=== PATIENT | female | born 1930 | race Caucasian/White ===

== ENCOUNTER 2016-08-23 09:52 | Day surgery (SDC) | payer MEDICARE ==
[~2016-08-23] VITALS: Ht 152.4 cm; Wt 56.0 kg
[~2016-08-23 09:52] MED LIST: ACET-2321 PO; ALEN70TA2 PO; AMLO10TA4 PO; ATOR20TA PO; CALC-139 PO; DOCU-168 PO; LIDOCAINE 1% (10mg/ml) 2ml SDV INJ ONE; LISI2.5T2 PO; LR 1,000 ML IV SCH; METO25TA3 PO; MULT-21 PO; OMEP20CA4 PO; PROPOFOL 500mg 50 ML IV ONE
--- OUTSIDE RECORDS SUMMARY | 2016-08-23 09:56 | XMS REPORT | Continuity of Care Document ---
Author Author [facility] Organization [facility] Address Unknown Phone Unavailable Allergies Medications Problems Procedures Results Encounters ACCT No. Visit Date/Time Discharge Status Pt. Type Provider Facility Loc./Unit Complaint [id number] 06/24/2013 10:03:00 06/24/2013 23 :59:59 CLS Outpatient [id number] 05/25/2013 13:50:00 05/25/2013 23 :59:59 CLS Outpatient
--- OUTSIDE RECORDS SUMMARY | 2016-08-23 09:57 | XMS REPORT | Referral Summary ---
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 Phone Ervin Smith Primary Care Physician [phone] Encounter VC Date(s): 06/11/16 - 06/11/16 [facility], [address] [place] [id number] Discharge Diagnosis: Benign essential hypertension Discharge Diagnosis: Lightheadedness Discharge Diagnosis: Anemia Discharge Disposition: 01-Home or Self Care Attending Physician: Forrest Smith MD Admitting Physician: Forrest Smith MD Vital Signs Most recent to 1 oldest [Reference Range]: Temperature Oral 36.8 degC [35.8-37.3 degC] (06/11/16 1:32 PM) Peripheral Pulse 66 bpm Rate [60-100 bpm] (06/11/16 1:32 PM) Respiratory Rate 18 br/min [14-20 br/min] (06/11/16 1:32 PM) Blood Pressure 112/68 mmHg [90-140/60-90 mmHg] (06/11/16 1:32 PM) Problem List Condition Effective Dates Status Health Status Informant Anxiety state Active (finding)(Confirmed) Arthritis(Confirmed) Resolved Benign essential Active hypertension (disorder)(Confirmed ) Breast Resolved cancer(Confirmed) Cardiac Resolved murmur(Confirmed) Closed fracture of Active lumbar vertebra without spinal cord injury (disorder)(Confirmed ) Fracture of L2 2013 Active vertebra - "burst"(Confirmed) Gastroesophageal Active reflux disease (disorder)(Confirmed ) MYASTHENIA Active GRAVIS(Confirmed) Hypertension(Confirm Resolved ed) Myasthenia Resolved gravis(Confirmed)1 Osteopenia(Confirmed Resolved ) Osteoporosis Active (disorder)(Confirmed ) Rheumatoid arthritis Active (disorder)(Confirmed ) Sepsis due to 1997 Resolved Staphylococcus(Confi rmed)2 Vertebral fracture, Resolved L2(Confirmed)3 1Dr. Ohlmstead 2Hospitalized 3"Burst" Allergies, Adverse Reactions, Alerts Substance Reaction Severity Status Betadine1 Active cephalexin allergy Active codeine allergy Active morphine allergy Active traMADol lightheaded and dizzy Mild Active 1Hives to topical Betadine Medications acetaminophen 1,000 mg, Oral, q6hr, as needed for pain, 0 Refill(s) Start Date: 08/25/15 Status: Ordered alendronate 70 mg oral tablet See Instructions, TAKE 1 TABLET BY MOUTH ONCE A WEEK, DIRECTED, # 12 tabs, 2 Refill(s), eRx: [employer] [id number], TAKE 1 TABLET BY MOUTH ONCE A WEEK, DIRECTED Start Date: 07/25/15 Status: Ordered amLODIPine 10 mg oral tablet See Instructions, TAKE 1 TABLET BY MOUTH EVERY DAY, # 30 tabs, 2 Refill(s), eRx : [employer] [id number], TAKE 1 TABLET BY MOUTH EVERY DAY Start Date: 05/22/16 Status: Ordered atorvastatin 20 mg oral tablet See Instructions, TAKE 1 TABLET BY MOUTH EVERY DAY AT BEDTIME, # 90 tabs, eRx: [employer] [id number] Start Date: 06/01/16 Status: Ordered calcium gluconate 500 mg oral tablet 500 mg 1 tabs, Oral, BID, 0 Refill(s) Start Date: 09/28/13 Status: Ordered Dulcolax Stool Softener 100 mg, Oral, Daily, 0 Refill(s) Start Date: 05/15/16 Status: Ordered lisinopril 2.5 mg oral tablet See Instructions, TAKE 1 TABLET BY MOUTH DAILY, # 90 tabs, 2 Refill(s), eRx: [employer] [id number] Start Date: 05/28/16 Status: Ordered Metoprolol Succinate ER 25 mg oral tablet, extended release See Instructions, TAKE 1 TABLET BY MOUTH DAILY, # 90 tabs, eRx: [employer] [id number] Start Date: 06/01/16 Status: Ordered MiraLax oral powder for reconstitution 17 g, Oral, Daily, dissolve in water before taking, # 255 g, 0 Refill(s) Start Date: 05/15/16 Status: Ordered multivitamin Daily, 0 Refill(s) Start Date: 09/28/13 Status: Ordered PriLOSEC OTC mg, Oral, Daily, 0 Refill(s) Start Date: 09/28/13 Status: Ordered Results Hematology Most recent to 1 oldest [Reference Range]: WBC [4.8-10.8 4.9 10*3/uL 10*3/uL] (06/11/16 2:25 PM) RBC [4.00-5.20] 3.30 *LOW* (06/11/16 2:25 PM) Hgb [12.0-16.0 7.9 gm/dL gm/dL] *LOW* (06/11/16 2:25 PM) Hct [37.0-47.0 %] 26.1 % *LOW* (06/11/16 2:25 PM) MCV [82.0-99.0 fL] 79.1 fL *LOW* (06/11/16 2:25 PM) MCH [27.0-32.0 pg] 23.9 pg *LOW* (06/11/16 2:25 PM) MCHC [32.0-36.0 30.3 gm/dL gm/dL] *LOW* (06/11/16 2:25 PM) RDW [11.5-14.5 %] 16.5 % *HI* (06/11/16 2:25 PM) Platelet [150-400 207 10*3/uL 10*3/uL] (06/11/16 2:25 PM) MPV [8.8-14.8 fL] 9.9 fL (06/11/16 2:25 PM) Immature 0.4 % Granulocytes (06/11/16 2:25 PM) [0.0-1.0 %] Neutrophils [51-75 74 % %] (06/11/16 2:25 PM) Lymphocytes [20-46 12 % %] *LOW* (06/11/16 2:25 PM) Monocytes [4-11 %] 13 % *HI* (06/11/16 2:25 PM) Eosinophils [0-4 %] 1 % (06/11/16 2:25 PM) Basophils [0-2 %] 0 % (06/11/16 2:25 PM) Neutro Absolute 3.59 [1.90-7.00] (06/11/16 2:25 PM) Lymph Absolute 0.57 [0.80-3.30] *LOW* (06/11/16 2:25 PM) Terry Absolute 0.64 [0.30-1.00] (06/11/16 2:25 PM) Eos Absolute 0.03 [0.00-0.50] (06/11/16 2:25 PM) Baso Absolute 0.01 [0.00-0.20] (06/11/16 2:25 PM) Reticulocyte 1.5 % [0.6-2.5 %] (06/11/16 2:25 PM) Chemistry Most recent to 1 oldest [Reference Range]: Ferritin Lvl [5-204 15 ng/mL ng/mL] (06/11/16 2:25 PM) Vitamin B12 Lvl 1709 pg/mL [213-816 pg/mL] *HI* (06/11/16 2:25 PM) Folate Lvl [7.0-31.4 >20.0 ng/mL ng/mL] (06/11/16 2:25 PM) Immunizations Given and Recorded Vaccine Date Status Refusal Reason tetanus/diphth/pertuss (Tdap) adult/adol 10/05/14 Given influenza virus vaccine, inactivated 01/14/15 Recorded pneumococcal 13-valent conjugate vaccine 10/05/14 Given pneumococcal 23-polyvalent vaccine 04/15/06 Recorded tetanus-diphth toxoids (Td) adult/adol 12/20/98 Recorded zoster vaccine live 10/13/09 Recorded Procedures Procedure Date Related Diagnosis Body Site Total hip replacement1 09/27/15 S/P colonoscopy 10/11/11 Cataract extraction, right 08/2008 Cataract extraction, left 07/2008 Colonoscopy 2002 Reconstruction 1988 Biopsy of breast, right 1986 Thymectomy 1961 1Right total hip arthroplasty Social History Social History Type Response Smoking Status Never smoker Assessment and Plan Extracted from: Title: 2 Week HTN Follow Up Author: Forrest Smith MD Date: 06/11/16 Impression and Plan Diagnosis Anemia (DXE71-UB D64.9, Discharge, Medical). Benign essential hypertension ([id number] I10, Discharge, Medical). Lightheadedness (LRU26-QP R42, Discharge, Medical). Orders Orders (Selected) Outpatient Orders Future (On Hold) CBC w/ Differential: Ferritin: Occult Blood X 3, Stool: Reticulocyte Count: Vitamin B12 and Folate: .
--- OUTSIDE RECORDS SUMMARY | 2016-08-23 09:57 | XMS REPORT | Referral Summary ---
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 Role Phone Ervin Smith Primary Care Physician [phone] Encounter VC Date(s): 05/15/16 - 05/15/16 [facility] [address] [place] [id number] Discharge Diagnosis: Benign essential hypertension Discharge Diagnosis: Right trigger finger Discharge Diagnosis: Irregular heart beat Discharge Diagnosis: Undiagnosed cardiac murmurs Discharge Diagnosis: Noncompliance with medication regimen Discharge Diagnosis: Frequent PVCs Discharge Disposition: 01-Home or Self Care Attending Physician: Forrest Smith MD Admitting Physician: Forrest Smith MD Vital Signs Most recent to 1 oldest [Reference Range]: Peripheral Pulse 82 bpm Rate [60-100 bpm] (05/15/16 10:15 AM) Blood Pressure 130/56 mmHg [90-140/60-90 mmHg] (05/15/16 10:15 AM) Problem List Condition Effective Dates Status Health [...] arthritis Active (disorder)(Confirmed ) Sepsis due to 1998 Resolved Staphylococcus(Confi rmed)2 Vertebral fracture, Resolved L2(Confirmed)3 [...] DIRECTED, # 12 tabs, 2 Refill(s), eRx: [employer] [id number], TAKE 1 TABLET BY MOUTH ONCE A WEEK, DIRECTED Start Date: 07/25/15 Status: Ordered amLODIPine 10 mg oral tablet 10 mg 1 tabs, Oral, Daily, 0 Refill(s) Start Date: 08/25/15 Status: Ordered atorvastatin 20 mg oral tablet See Instructions, TAKE 1 TABLET BY MOUTH EVERY DAY AT BEDTIME, # 90 tabs, 1 Refill(s), eRx: [employer] [id number], TAKE 1 TABLET BY MOUTH EVERY DAY AT BEDTIME Start Date: 02/06/16 Status: Ordered calcium gluconate 500 mg oral tablet 500 mg 1 tabs, Oral, BID, 0 Refill(s) Start Date: 09/28/13 Status: Ordered Dulcolax Stool Softener 100 mg, Oral, Daily, 0 Refill(s) Start Date: 05/15/16 Status: Ordered lisinopril 2.5 mg oral tablet See Instructions, TAKE 1 TABLET BY MOUTH DAILY, # 90 tabs, eRx: [employer] [id number], TAKE 1 TABLET BY MOUTH DAILY Start Date: 02/27/16 Status: Ordered Metoprolol Succinate ER 25 mg oral tablet, extended release See Instructions, TAKE 1 TABLET BY MOUTH DAILY, # 90 tabs, 1 Refill(s), eRx: [employer] [id number], TAKE 1 TABLET BY MOUTH DAILY Start Date: 02/17/16 Status: Ordered MiraLax oral powder for reconstitution 17 g, Oral, Daily, dissolve in water before taking, # 255 g, 0 Refill(s) Start Date: 05/15/16 Status: Ordered multivitamin Daily, 0 Refill(s) Start Date: 09/28/13 Status: Ordered PriLOSEC OTC mg, Oral, Daily, 0 Refill(s) Start Date: 09/28/13 Status: Ordered Results No data available for this section Immunizations Given and Recorded Vaccine Date Status [...] right 08/2008 Cataract extraction, left 07/2008 Colonoscopy 2001 Reconstruction 1988 Biopsy of breast, right 1986 Thymectomy 1961 1Right total hip arthroplasty Social History Social History Type Response Smoking Status Never smoker Assessment and Plan Extracted from: Title: OV Author: Forrest Smith MD Date: 05/15/16 Impression and Plan Diagnosis Benign essential hypertension ([id number]-IG I10, Discharge, Medical). Right trigger finger (BOU97-VQ M65.30, Discharge, Medical). Irregular heart beat (ZJN51-FT I49.9, Discharge, Medical). Undiagnosed cardiac murmurs (ZZV92-SU R01.1, Discharge, Medical). Noncompliance with medication regimen (PDR94-TN Z91.14, Discharge, Medical). 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 Orders Orders (Selected) Outpatient Orders Ordered Request for Cardiovascular Echo: .
[2016-08-23 10:05] VITALS: Ht 152.4 cm; Wt 56.0 kg
[2016-08-23 10:06] VITALS: BP 157/68; PULSE 63; RESP 15; TEMP 97.5; O2SAT 99
--- NOTE | 2016-08-23 10:23 | ANESPREOP ---
Anesthesia Record Date and Time DATE: 08/23/16 TIME: 10:21 Pre-Op Diagnosis Anemia, positive Hemoccult Proposed Surgical Procedure 0945 NPO since: Midnight Allergies: Coded Allergies: meperidine HCl (Verified Allergy, Intermediate, HIVES, 08/23/16) HIVES cephalexin (Verified Allergy, Unknown, 08/23/16) codeine (Verified Allergy, Unknown, HIVES, 08/23/16) iodine (Verified Allergy, Unknown, HIVES, 08/23/16) morphine (Verified Allergy, Unknown, HIVES, 08/23/16) hydroxychloroquine sulfate (Verified Adverse Reaction, Intermediate, CONTRAINDICATED WITH MYASTHENIA GRAVIS, 08/23/16) tramadol (Verified Adverse Reaction, Unknown, LIGHTHEADED, DIZZY, 08/23/16) Uncoded Allergies: MYCINS (Allergy, Intermediate, 10/11/11) MUSCLE RELAXERS (Allergy, Unknown, CONTRAINDICATED WITH MYASTHENIA GRAVIS, 08/11/15) Ht/Wt/BMI Height: 5 ' 0.00 " Weight: 56.000 kg BMI: 24.1 kg/m2 Vital Signs Date Time Temp Pulse Resp B/P Pulse Ox O2 Delivery O2 Flow Rate FiO2 08/23/16 10:06 97.5 63 15 157/68 99 Room Air Medications Inpatient Medications Current Medications Medications (Trade) Dose Ordered Sig/Madeline Start Time Stop Time Status Last Admin Dose Admin Lactated Ringer's (Lactated Ringers) 1,000 ml @ 30 mls/hr Q24H 08/23/16 07:00 Acetaminophen (Tylenol) 325 Mg Tablet, 1-2 TAB PO QID PRN for PAIN Last Taken: on Unknown Date & Time Alendronate Sodium (Fosamax) 70 Mg Tablet, 70 MG PO Fr@0600 Last Taken: on 08/12/16 0700 Amlodipine Besylate (Norvasc) 10 Mg Tablet, 10 MG PO DAILY Last Taken: on 08/22/16 2230 Atorvastatin Calcium (Lipitor) 20 Mg Tablet, 20 MG PO HS Last Taken: on Unknown Date & Time Calcium Carbonate/Vitamin D3 (Calcium 500 + Vit D 200 Tablet) 1 Tab Tablet, 1 TAB PO BID Last Taken: on 08/22/16 0700 Docusate Sodium (Colace) 100 Mg Capsule, 1 CAP PO DAILY, (Reported) Last Taken: on 08/21/16 0700 Lisinopril (Lisinopril) 2.5 Mg Tablet, 2.5 MG PO DAILY Last Taken: on 08/22/162229 Metoprolol Succinate (Toprol Xl) 25 Mg Tablet, 25 MG PO DAILY Last Taken: on 08/22/162229 Multivitamins,Therapeutic (Thera) 1 Tab Tablet , 1 TAB PO DAILY Last Taken: on 08/22/16 07 Omeprazole (Prilosec) 20 Mg Capsule, 20 MG PO HS Last Taken: on Unknown Date & Time Currently on Beta Camryn: Yes Beta Camryn Last Taken: 08/23/16 Medical/Surgical History Anesthesia PMH: Reports: *Hypertension (PER H&P), Anesthesia Reactions (due to myasthenia gravis pt has a list of meds to avoid ), Arthritis (RA PER H&P), Cancer (R.BREAST PER HP), Hyperlipidemia, Other (Myasthenia Gravis), Reflux, Denies: *Angina, *Diabetes, *Dyspnea, *UT, Asthma, Blood Transfusion Reac, CHF, COPD, CVA/Stroke/TIA, Clotting Problems, Deep Vein Thrombosis, Glaucoma, Headaches, Hepatitis, Hiatal Hernia, Malignant Hyperthermia, Pneumonia, Renal Disease, Rheumatic Fever, Seizures, Sleep Apnea, Thyroid Disease, Tuberculosis Smoking Status: Never smoker Has pt. smoked today?: No Use Chewing Tobacco?: No Second Hand Exposure: No Substance Use Type: does not use Alcohol Intake: none Past Surgical History Orthopedic Surgeries: Yes - THR PER H&P Abdominal Surgeries: No Genitourinary Surgeries: No Cardiac Surgeries: Yes - TOOK A GLAND OFF THE HEART TO CHECK FOR CANCER Endocrine Surgeries: Yes - THYMECTOMY PER H&P Reproductive Surgeries: Yes - BREAST BIOPSY, RIGHT MASTECTOMY & RECONSTRUCTION Neurological Surgeries: No Ear Surgeries: No Nose Surgeries: No Throat Surgeries: No Other Surgeries: Yes - COLONSOCOPY, CAT Anesthesia Adverse Reactions: FOUND none Pertinent Findings EKG Rhythm: Sinus Rhythm Physical Exam Respiratory: Lungs clear Cardiovascular: FOUND Regular rate, rhythm Airway Assessment Mallampati Score: II TMD: 3 Fingerbreadths Neck Extension: Fair Overall Assessment: No Airway Concerns ASA: 3 Plan Anesthesia Plan: TIVA Discussion Discussed risks/options/alternatives of anesthesia and questions answered. Patient consents. Nursing pain assessment noted. Present: Children Attestation Statement Prior to the delivery of any anesthetic medication, I examined the patient, developed the plan, obtained the patient's consent and discussed the risk and benefits of the procedure with the patient/guardian. MIGUEL ANGEL AGUILAR TESTING AND REGULATING CHIEF August 23, 2016 10:23
[2016-08-23] MEDS ORDERED: LIDOCAINE VISCOUS 2% Oral Soln 15ml UD ONE (12:38)
[2016-08-23 13:07] VITALS: BP 84/45; PULSE 47; RESP 16; TEMP 97.2; O2SAT 96
[2016-08-23 13:15] VITALS: BP 100/55; PULSE 48; RESP 14; O2SAT 96
[2016-08-23 13:30] VITALS: BP 128/60; PULSE 56; RESP 16; O2SAT 98
[2016-08-23 13:45] VITALS: BP 122/60; PULSE 53; RESP 16; O2SAT 97
--- NOTE | 2016-08-23 16:23 | OPNOTEF ---
DATE OF SERVICE 08/23/2016 SURGEON Iván Johnston MD PREOPERATIVE DIAGNOSIS Personal history for progressive anemia, Hemoccult positive stools. POSTOPERATIVE DIAGNOSIS Personal history for progressive anemia, Hemoccult positive stools, distal esophagitis, paraesophageal hernia, pandiverticulosis. PROCEDURE Esophagogastroduodenoscopy with biopsies from distal esophagus via cold biopsy technique, colonoscopy. ANESTHESIA TIVA BRIEF HISTORY/INDICATIONS Mrs. Tim is an 85-year-old female who has developed progressive iron deficiency anemia and was found to have a Hemoccult positive stool. As a result of the above indications it was recommended to the patient she undergo bidirectional endoscopy. FINDINGS Upon upper endoscopy the patient was found to have endoscopic evidence for a paraesophageal hernia. There was a component of distal esophagitis. Biopsies were obtained from the distal esophagus. Upon colonoscopy there was no evidence for angiodysplastic lesions, polyps or rimma malignancies. The patient was found to have a fair amount of diverticula scattered throughout the entire colon with the majority of the diverticular disease being present within the sigmoid colon region. DESCRIPTION OF PROCEDURE After informed consent was obtained, the patient was brought to the endoscopy suite and placed on the table in left lateral decubitus position. The patient subsequently underwent total intravenous anesthesia by the nurse respiratory technician per my request. A formal time-out was then completed. Next, an Olympus gastroscope was inserted into the oral hypopharynx. Vocal cords were visualized and found to be symmetric. Gastroscope was then subsequently advanced directly into the esophagus and subsequently into the stomach. The antrum and pylorus were not in the typical location and a J-maneuver was then performed. One could then see that the antral portion of the stomach was actually within the mediastinum and that the patient had a paraesophageal hernia. Gastroscope was then able to be advanced up into the antral portion of the stomach within the mediastinum. Scope was then advanced up to and just beyond the pylorus. Scope was unable to be advanced further into the duodenum as a result of the abnormal anatomy/paraesophageal hernia. The duodenal bulb was without noted abnormalities. The scope was then withdrawn back to the prepyloric region and antrum. Again, no marked abnormalities were noted. Scope was then withdrawn back into the corpus of the stomach. Photos were obtained upon J-maneuver to document the paraesophageal hernia. One could see the stomach to the right of the right crura up into the mediastinum as discussed above. The scope was allowed to straighten and slowly withdrawn. The remaining corpus of the stomach was visualized and again without noted abnormalities. Scope was withdrawn back to the level of the squamocolumnar junction which was about 3-4 cm above the level of the diaphragm. Squamocolumnar junction was somewhat erythematous in nature as well as containing a small ulceration. The mucosa just beneath the GE junction was also somewhat more "cobblestoned" than one typically sees . This did not appear worrisome however in nature. Several biopsies were obtained from the distal esophagus via cold biopsy technique. Scope was then slowly withdrawn and the remaining esophageal mucosa was inspected and found to be without noted abnormalities. Next, attention was directed towards performing the colonoscopy. First digital examination was performed. Normal sphincter tone. No rectal masses were appreciated. An Olympus colonoscope was inserted in the anus and advanced through the lumen of the colon under direct visualization at all times until the cecum was ascertained. Triangulation of the teniae coli and ileocecal valve were identified. The scope was then slowly withdrawn. As stated above, the patient was found to have diverticula scattered throughout the entire colon. There was however no evidence for angiodysplastic lesions, polyps or rimma malignancies. Once the colonoscope was withdrawn back into the rectal vault, a J-maneuver was performed. No worrisome perianal pathology was noted. Scope was allowed to straighten and withdrawn through the anal verge. The patient tolerated the procedure without difficulty and was sent back to the preop area in stable condition. Given the patient's advanced age and the fact that she seems to be asymptomatic in nature in regards her paraesophageal hernia, I would not recommend elective repair. If the patient would become symptomatic in nature, then at that time may address proceeding with repair of her paraesophageal hernia. I do feel that this paraesophageal hernia is contributing to her iron deficiency anemia. We will await her pathologic results from her biopsy of the distal esophagus and proceed accordingly with further recommendations thereafter. ALLYSSA
--- NOTE | 2016-08-23 16:45 | ANESPO ---
Post-Op Note Date 08/23/16 Time: 16:45 Status Pt Participated in Evaluation: Pt participated by phone Vital Signs Date Time Temp Pulse Resp B/P Pulse Ox O2 Delivery O2 Flow Rate FiO2 08/23/16 13:45 53 16 122/60 97 Room Air 08/23/16 13:07 97.2 Respiratory Function: Airway patent Cardiovascular Function: Regular pulse Telemetry Pattern: SR Mental Status: Alert/oriented Pain Level Intensity: 0 Hydration: Taking po fluids Complications during Recovery None apparent Follow-Up Instructions Instructions Per Surgeon MIGUEL ANGEL AGUILAR CRNA August 23, 2016 16:45
== END 2016-08-23 13:45 | disposition home or self-care (01) ==
LOC: SCU 09:52
PROVIDERS: ATTEND Surgery
DX: R19.5 Other fecal abnormalities (principal); K57.30 Diverticulosis of large intestine without perforation or abscess without bleeding; D50.9 Iron deficiency anemia, unspecified; Z86.010 Personal history of colon polyps; K21.0 Gastro-esophageal reflux disease with esophagitis; K44.9 Diaphragmatic hernia without obstruction or gangrene; F41.9 Anxiety disorder, unspecified; I10 Essential (primary) hypertension; G70.00 Myasthenia gravis without (acute) exacerbation; M81.0 Age-related osteoporosis without current pathological fracture; M06.9 Rheumatoid arthritis, unspecified; Z79.899 Other long term (current) drug therapy
CPT/HCPCS: 43239; 45378; J7120